=== PATIENT | male | born 1980 | race American Indian/Alaskan Native ===

== ENCOUNTER 2021-05-22 00:23 | Emergency (ER) | payer SELFPAY ==
[2021-05-22 01:06] VITALS: BP 123/79
[2021-05-22] MEDS ORDERED: methylPREDNISolone Sod Succinate 125 MG/2 ML INJ IM ONE (03:26)
[2021-05-22] MEDS ORDERED: IBUPROFEN 600 MG TAB PO ONE (03:27)
--- NOTE | 2021-05-22 04:50 | Emergency Department Report ---
- General Chief Complaint: Dizziness Stated Complaint: DIZZY SPELLS Source: patient Mode of arrival: Ambulatory Limitations: No Limitations - History of Present Illness Initial Comments: Patient is a 40-year-old -[place] male with no past medical history who presents to the ED with complaint of acute onset persistent nasal and sinus congestion, frontal and maxillary sinus pressure, lightheadedness and dizziness, frontal sinus headache, persistent dry cough for the last 1 week, worse in the last 2 days. Patient states that he has been taking [id number] medications with no relief. Patient states that he has not been able to sleep because of frontal sinus pressure with a sensation of difficulty breathing. Patient denies syncope, chest pain, shortness of breath, sore throat, fever, c hills, back pain, neck pain, change in vision. MD Complaint: cough, rhinorrhea, nasal congestion, sinus pain, other (Frontal headache; lightheadedness) -: Sudden, week(s) (1) Severity: severe Severity scale (0 -10): 7 Quality: other (Pressure) Consistency: constant Improves With: nothing Worsens With: nothing Associated Symptoms: denies other symptoms, headache, rhinorrhea, nasal congestion, cough. denies: fever, chills, diaphoresis, sore throat, stiff neck, chest pain, shortness of breath, abdominal pain, nausea, vomiting, rash, confusion, weight loss, epistaxis, hoarseness, ear pain Treatments Prior to Arrival: "cold medicine" - Related Data Previous Rx's Medication Instructions Recorded Last Taken Type Amoxicillin/Potassium Clav 1 each PO Q12H #20 tablet 05/22/21 Unknown Rx [Augmentin 875-125 Tablet] Benzonatate [Tessalon Perles] 100 mg PO Q8HR #30 capsule 05/22/21 Unknown Rx Fexofenadine/Pseudoephedrine 1 each PO DAILY #30 tab.er.12h 05/22/21 Unknown Rx [Lu-D 12 Hour Tablet] Fluticasone [Flonase] 1 spray NS QDAY #1 bottle 05/22/21 Unknown Rx methylPREDNISolone [Medrol 4MG 4 mg PO DAILY #21 tab.ds.pk 05/22/21 Unknown Rx DOSEPAK (21 tabs)] Allergies Allergy/AdvReac Type Severity Reaction Status Date / Time No Known Allergies Allergy Verified 05/22/21 01:11 ED Review of Systems ROS: Stated complaint: DIZZY SPELLS Other details as noted in HPI Constitutional: denies: chills, fever Eyes: denies: eye pain, eye discharge, vision change ENT: congestion, other (Nasal and sinus pressure). denies: ear pain, throat pain Respiratory: cough. denies: shortness of breath, wheezing Cardiovascular: denies: chest pain, palpitations Endocrine: no symptoms reported Gastrointestinal: denies: abdominal pain, nausea, diarrhea Genitourinary: denies: urgency, dysuria Musculoskeletal: denies: back pain, joint swelling, arthralgia Skin: denies: rash, lesions Neurological: denies: headache, weakness, paresthesias Psychiatric: denies: anxiety, depression Hematological/Lymphatic: denies: easy bleeding, easy bruising ED Past Medical Hx - Past Medical History Previous Medical History?: No - Surgical History Past Surgical History?: No - Social History Smoking Status: Never Smoker Substance Use Type: None - Medications Home Medications: Home Medications Medication Instructions Recorded Confirmed Last Taken Type Amoxicillin/Potassium Clav 1 each PO Q12H #20 tablet 05/22/21 Unknown Rx [Augmentin 875-125 Tablet] Benzonatate [Tessalon Perles] 100 mg PO Q8HR #30 capsule 05/22/21 Unknown Rx Fexofenadine/Pseudoephedrine 1 each PO DAILY #30 tab.er.12h 05/22/21 Unknown Rx [Lu-D 12 Hour Tablet] Fluticasone [Flonase] 1 spray NS QDAY #1 bottle 05/22/21 Unknown Rx methylPREDNISolone [Medrol 4MG 4 mg PO DAILY #21 tab.ds.pk 05/22/21 Unknown Rx DOSEPAK (21 tabs)] ED Physical Exam - General Limitations: No Limitations General appearance: alert, in no apparent distress - Head Head exam: Present: atraumatic, normocephalic, normal inspection - Eye Eye exam: Present: normal appearance, PERRL, EOMI Pupils: Present: normal accommodation - ENT ENT exam: Present: normal orophraynx, mucous membranes moist, TM's normal bilaterally, normal external ear exam, other (Grossly congested nasal passages with palpable maxillary and frontal sinus tenderness) - Neck Neck exam: Present: normal inspection, full ROM - Respiratory Respiratory exam: Present: normal lung sounds bilaterally. Absent: respiratory distress, wheezes, rales, stridor, prolonged expiratory - Cardiovascular Cardiovascular Exam: Present: regular rate, normal rhythm, normal heart sounds. Absent: systolic murmur, diastolic murmur, rubs, gallop - GI/Abdominal GI/Abdominal exam: Present: soft, normal bowel sounds. Absent: tenderness, guarding, rebound, hyperactive bowel sounds - Extremities Exam Extremities exam: Present: normal inspection, full ROM, normal capillary refill - Back Exam Back exam: Present: normal inspection, full ROM. Absent: tenderness, CVA tenderness (R), CVA tenderness (L), paraspinal tenderness - Neurological Exam Neurological exam: Present: alert, oriented X3, CN II-XII intact, normal gait, reflexes normal - Psychiatric Psychiatric exam: Present: normal affect, normal mood - Skin Skin exam: Present: warm, dry, intact, normal color. Absent: rash ED Course Vital Signs 05/22/21 01:04 Temperature 97.9 F Pulse Rate 77 Respiratory 18 Rate Blood Pressure 123/79 O2 Sat by Pulse 98 Oximetry ED Medical Decision Making - Medical Decision Making This is a 40-year-old -[place] male with no past medical history who presents to the ED with complaint of acute onset persistent nasal and sinus congestion, frontal and maxillary sinus pressure, lightheadedness and dizziness, frontal sinus headache, persistent dry cough for the last 1 week, worse in the last 2 days. Patient states that he has been taking [id number] medications with no relief. Patient states that he has not been able to sleep because of frontal sinus pressure with a sensation of difficulty breathing. In the ED, patient is alert and oriented x3 and is not in distress. Patient was treated in the ED with Solu-Medrol and pain medications. On reevaluation, patient felt better and was discharged home on medications. Patient was advised to follow-up with his primary care physician in 5 to 7 days for reevaluation. Other differential diagnoses were considered including sinusitis, bronchitis, URI, rhinitis. Patient was advised to return to the ED immediately if symptoms get worse. - Differential Diagnosis Sinusitis; URI; bronchitis; rhinitis; Critical care attestation.: If time is entered above; I have spent that time in minutes in the direct care of this critically ill patient, excluding procedure time. ED Disposition Clinical Impression: Acute recurrent pansinusitis, Acute upper respiratory infection, Chronic rhinitis Disposition: HOME / SELF CARE / HOMELESS Is pt being admited?: No Does the pt Need Aspirin: No Condition: Stable Instructions: Sinusitis, Adult, [id number], Upper Respiratory Infection, Adult, [id number], Cough, Adult, [id number], Allergic Rhinitis, Adult Additional Instructions: Take medication with food, drink plenty of fluids and follow-up with your primary care physician in 7 to 10 days for reevaluation. Return to the ED immediately if symptoms get worse. Prescriptions: Fexofenadine/Pseudoephedrine [Lu-D 12 Hour Tablet] 1 each PO DAILY #30 tab.er.12h Amoxicillin/Potassium Clav [Augmentin 875-125 Tablet] 1 each PO Q12H #20 tablet Fluticasone [Flonase] 1 spray NS QDAY #1 bottle methylPREDNISolone [Medrol 4MG DOSEPAK (21 tabs)] 4 mg PO DAILY #21 tab.ds.pk Benzonatate [Tessalon Perles] 100 mg PO Q8HR #30 capsule Referrals: [facility] [Provider Group] - 3-5 Days Forms: Work/School Release Form(ED) Time of Disposition: 04:51 Print Language: SURINAMESE
== END 2021-05-22 06:10 | disposition home or self-care (01) ==
LOC: ED 00:23
DX: J01.41 Acute recurrent pansinusitis (principal); J06.9 Acute upper respiratory infection, unspecified; J31.0 Chronic rhinitis
CPT/HCPCS: 96372; 99282; J2930